=== PATIENT | male | born 1960 | race Caucasian/White ===

== ENCOUNTER → 2020-04-15 | Outpatient (CLI) | payer BC | END | disposition home or self-care (01) | LOC: CPPFTMAIN 08:54 | PROVIDERS: ATTEND Physician Assistant Medical | DX: J44.9 Chronic obstructive pulmonary disease, unspecified (principal); J98.8 Other specified respiratory disorders | CPT/HCPCS: 94060; 94726; 94729 ==

== ENCOUNTER 2020-10-07 21:10 | Emergency (ER) | payer BC ==
[2020-10-07] MEDS ORDERED: HYDROmorphone 0.5 MG/0.5 ML SYRINGE IVP STA (22:02)
[2020-10-07] MEDS ORDERED: KETOROLAC 15 MG/ML 1 ML VIAL IVP STA (22:02)
[2020-10-07] MEDS ORDERED: ONDANSETRON 4 MG/2 ML VIAL IVP STA (22:02)
[2020-10-07] MEDS ORDERED: SODIUM CHLORIDE 0.9% 1,000 ML IV STA (22:02)
--- NOTE | 2020-10-07 22:24 | ED ---
Back Pain HPI - General Chief Complaint: Back Pain/Injury Stated Complaint: Back Pain Time Seen by Provider: 10/07/20 21:46 Source: patient Limitations: no limitations - History of Present Illness Initial Comments: 59-year-old male patient presents to the emergency department today for evaluation of right lower back pain radiating through to the right lower abdomen. Patient states this started a couple days ago after waking from a nap. Patient denies history of back pain. Denies radiation of pain down his legs. Denies loss of bowel or bladder control. Denies saddle anesthesia or numbness or tingling to the lower extremities. States he has been nauseated. Denies any vomiting. Denies any fever or chills. Denies history of kidney stones or any difficulty with urination. Denies constipation or diarrhea. Patient denies any recent rash, cough, shortness of breath, chest pain, dizziness, weakness, headache, visual changes, or any other complaints. - Related Data Home Medications Medication Instructions Recorded Confirmed Fluticasone/Salmeterol [Advair 1 inhalation PO DAILY 11/26/14 11/28/14 250-50 Diskus] Levothyroxine Sodium [Synthroid] 75 mcg PO DAILY 11/26/14 11/28/14 Previous Rx's Medication Instructions Recorded HYDROcodone/APAP 7.5-325MG [Surveyor 1 each PO Q4H PRN #60 tab 11/28/14 7.5] Cyclobenzaprine [Flexeril] 10 mg PO TID #15 tab 10/08/20 Lidocaine 5% Patch [Lidoderm] 1 patch TOPICAL DAILY #30 patch 10/08/20 Naproxen [EC-Naprosyn] 500 mg PO BID PRN #30 tablet. 10/08/20 Allergies Allergy/AdvReac Type Severity Reaction Status Date / Time No Known Allergies Allergy Verified 10/07/20 21:25 Review of Systems ROS Statement: Those systems with pertinent positive or pertinent negative responses have been documented in the HPI. ROS Other: All systems not noted in ROS Statement are negative. Past Medical History Past Medical History: COPD, Thyroid Disorder History of Any Multi-Drug Resistant Organisms: None Reported Past Surgical History: Orthopedic Surgery Additional Past Surgical History / Comment(s): surgery fx rt wrist , surgery fx rt arm, rt shoulder arthroscopy Past Anesthesia/Blood Transfusion Reactions: No Reported Reaction Past Psychological History: Anxiety Smoking Status: Never smoker Past Alcohol Use History: None Reported Past Drug Use History: None Reported - Past Family History Father Family Medical History: Cancer Mother Family Medical History: Cancer General Exam Limitations: no limitations General appearance: alert, in no apparent distress, other (This is a well- developed, well-nourished adult male patient in no acute distress. Vital signs upon presentation are temperature 97.8F, pulse 73, respirations 18, blood pressure 169/101, pulse ox 97% on room air.) Respiratory exam: Present: normal lung sounds bilaterally. Absent: respiratory distress, wheezes, rales, rhonchi, stridor Cardiovascular Exam: Present: regular rate, normal rhythm, normal heart sounds. Absent: systolic murmur, diastolic murmur, rubs, gallop, clicks GI/Abdominal exam: Present: soft, tenderness (Right upper and right lower quadrant), normal bowel sounds. Absent: distended, guarding, rebound, rigid Back exam: Present: CVA tenderness (R). Absent: CVA tenderness (L) Neurological exam: Present: alert, oriented X3, CN II-XII intact Psychiatric exam: Present: normal affect, normal mood Skin exam: Present: warm, dry, intact, normal color. Absent: rash Course Vital Signs 10/07/20 10/08/20 21:22 00:10 Temperature 97.8 F Pulse Rate 73 68 Respiratory 18 17 Rate Blood Pressure 169/101 147/98 O2 Sat by Pulse 97 96 Oximetry Medical Decision Making - Medical Decision Making 59-year-old male patient presents to the emergency department today for evaluat ion of right lower back pain. Patient states the pain does radiate through to the abdomen. Denies radiation down the legs. Denies any concerning symptoms for cauda equina. He is afebrile, vital signs were labs are unremarkable. CT abdomen and pelvis without contrast was obtained and was negative for any acute abnormalities. There was epigastric hernia containing fat measuring 5 cm with no inflammatory changes. Patient denies pain to this area. Will discharge follow-up with his primary care physician for recheck in 1-2 days. We'll treat for musculoskeletal back pain with naproxen and Flexeril. He'll also be given Lidoderm patches. Return parameters were discussed in detail. He verbalizes understanding and agrees with this plan. - Lab Data Result diagrams: 10/07/20 22:18 10/07/20 22:18 Lab Results 10/07/20 10/07/20 10/07/20 Range/Units 22:18 22:18 22:18 WBC 9.3 (3.8-10.6) k/uL RBC 5.02 (4.30-5.90) m/uL Hgb 16.0 (13.0-17.5) gm/dL Hct 46.4 (39.0-53.0) % MCV 92.3 (80.0-100.0) fL MCH 31.9 (25.0-35.0) pg MCHC 34.5 (31.0-37.0) g/dL RDW 12.6 (11.5-15.5) % Plt Count 298 (150-450) k/uL MPV 6.8 Neutrophils % 66 % Lymphocytes % 23 % Monocytes % 6 % Eosinophils % 2 % Basophils % 1 % Neutrophils # 6.2 (1.3-7.7) k/uL Lymphocytes # 2.1 (1.0-4.8) k/uL Monocytes # 0.6 (0-1.0) k/uL Eosinophils # 0.2 (0-0.7) k/uL Basophils # 0.1 (0-0.2) k/uL Sodium 139 (137-145) mmol/L Potassium 4.1 (3.5-5.1) mmol/L Chloride 105 (98-107) mmol/L Carbon Dioxide 29 (22-30) mmol/L Anion Gap 5 mmol/L BUN 18 (9-20) mg/dL Creatinine 0.89 (0.66-1.25) mg/dL Est GFR (CKD-EPI)AfAm >90 (>60 ml/min/1.73 sqM) Est GFR (CKD-EPI)NonAf >90 (>60 ml/min/1.73 sqM) Glucose 116 H (74-99) mg/dL Calcium 9.2 (8.4-10.2) mg/dL Total Bilirubin 0.3 (0.2-1.3) mg/dL AST 33 (17-59) U/L ALT 31 (4-49) U/L Alkaline Phosphatase 87 (38-126) U/L Total Protein 7.5 (6.3-8.2) g/dL Albumin 4.2 (3.5-5.0) g/dL Lipase 238 (23-300) U/L Urine Color Yellow Urine Appearance Clear (Clear) Urine pH 5.5 (5.0-8.0) Ur Specific [place] 1.024 (1.001-1.035) Urine Protein Negative (Negative) Urine Glucose (UA) Negative (Negative) Urine Ketones Negative (Negative) Urine Blood Trace H (Negative) Urine Nitrite Negative (Negative) Urine Bilirubin Negative (Negative) Urine Urobilinogen <2.0 (<2.0) mg/dL Ur Leukocyte Esterase Negative (Negative) Urine RBC 1 (0-5) /hpf Urine WBC <1 (0-5) /hpf Urine Bacteria Rare H (None) /hpf Urine Mucus Rare H (None) /hpf - Radiology Data Radiology results: report reviewed, image reviewed CT head and pelvis without contrast was obtained. Report reviewed in its entirety. Impression by Dr. Farrar shows sigmoid diverticulosis without diverticulitis. Epigastric ventral hernia contains fat. No acute abnormality of the abdomen and pelvis. Disposition Clinical Impression: Back pain, Abdominal pain Disposition: HOME SELF-CARE Condition: Good Instructions (If sedation given, give patient instructions): Acute Low Back Pain (ED), Abdominal Pain (ED) Additional Instructions: Take medications as directed. Perform gentle range of motion exercises to the back. Avoid prolonged periods of sitting worse lying down. Follow-up with your primary care physician for recheck in 1-2 days. Return to the emergency department for any new, worsening, or concerning symptoms. Prescriptions: Naproxen [EC-Naprosyn] 500 mg PO BID PRN #30 tablet.dr RAMIREZ Reason: Pain Cyclobenzaprine [Flexeril] 10 mg PO TID #15 tab Lidocaine 5% Patch [Lidoderm] 1 patch TOPICAL DAILY #30 patch Is patient prescribed a controlled substance at d/c from ED?: No Referrals: Elle Munroe MD [Primary Care Provider] - 1-2 days Time of Disposition: 00:29
[2020-10-07 22:46] LABS: Basophils # (A) 0.1 k/uL (0-0.2); Basophils % (A) 1 %; Eosinophils # (A) 0.2 k/uL (0-0.7); Eosinophils % (A) 2 %; HCT 46.4 % (39.0-53.0); Lymphocytes # (A) 2.1 k/uL (1.0-4.8); Lymphocytes % (A) 23 %; MCH 31.9 pg (25.0-35.0); MCHC 34.5 g/dL (31.0-37.0); MCV 92.3 fL (80.0-100.0); Mean Platelet Volume 6.8; Monocytes # (A) 0.6 k/uL (0-1.0); Monocytes % (A) 6 %; Neutrophils # (A) 6.2 k/uL (1.3-7.7); Neutrophils % (A) 66 %; Platelet Count 298 k/uL (150-450); RBC 5.02 m/uL (4.30-5.90); RDW 12.6 % (11.5-15.5); WBC 9.3 k/uL (3.8-10.6)
[2020-10-07 22:50] LABS: Appearance,Urine Clear (Clear); Bacteria,Urine Rare /hpf; Bilirubin,Urine Negative (Negative); Blood,Urine Trace (Negative); Color,Urine Yellow; Glucose,Urine (UA) Negative (Negative); Ketones,Urine Negative (Negative); Leukocyte Esterase,Urine Negative (Negative); Mucus,Urine Rare /hpf; Nitrite,Urine Negative (Negative); PH, Urine 5.5 (5.0-8.0); Protein,Urine Negative (Negative); RBC,Urine 1 /hpf (0-5); Specific Gravity,Urine 1.024 (1.001-1.035); Urobilinogen,Urine <2.0 mg/dL (<2.0); WBC,Urine <1 /hpf (0-5)
[2020-10-07 22:56] LABS: African American GFR (CKD) >90 (>60 ml/min/1.73 sqM); Albumin 4.2 g/dL (3.5-5.0); Anion Gap 5 mmol/L; Blood Urea Nitrogen 18 mg/dL (9-20); Calcium 9.2 mg/dL (8.4-10.2); Carbon Dioxide 29 mmol/L (22-30); Chloride 105 mmol/L (98-107); Glucose 116 mg/dL (74-99); Non-African American GFR(CKD) >90 (>60 ml/min/1.73 sqM); Potassium 4.1 mmol/L (3.5-5.1); Sodium 139 mmol/L (137-145); Total Bilirubin 0.3 mg/dL (0.2-1.3); Total Protein 7.5 g/dL (6.3-8.2)
[2020-10-07 22:57] LABS: ALT 31 U/L (4-49); AST 33 U/L (17-59); Alkaline Phosphatase 87 U/L (38-126); Lipase 238 U/L (23-300)
--- NOTE | 2020-10-08 00:21 | CT ---
EXAMINATION TYPE: CT abdomen pelvis wo con DATE OF EXAM: 10/07/2020 COMPARISON: None HISTORY: right lower back pain CT DLP: 567.3 mGycm Automated exposure control for dose reduction was used. Images obtained from the diaphragm to the floor the pelvis without contrast. Lung bases are clear of consolidation. There is no pleural effusion. Heart size is normal. There is n o pericardial effusion. There is small cysts in the anterior right lobe of the liver. Spleen is intact. There is no pancreati c mass. Stomach is intact. There is no adrenal mass. Kidneys have normal size. There is no hydronephrosis. Ureters are not dilated. There is no retroperit sanchez adenopathy. Bladder distends smoothly. There is no inguinal hernia. There is some prostatic tayler cification. There are a few sigmoid diverticula. There is no diverticulitis. There is epigastric ventral hernia t hat contains fat. The opening is 2.5 cm. There are hernia measures 5.5 cm. Appendix appears normal. There is no mesenteric edema. There is no ascites or free air. There is no bowel obstruction. Lumbar vertebra have fairly normal alignment. There is no compression fracture. The bony pelvis is in tact. Hip joints are intact. IMPRESSION: There is sigmoid diverticulosis without diverticulitis. Epigastric ventral hernia contains fat. No acute abnormality of the abdomen pelvis.
[2020-10-08] MEDS ORDERED: IBUPROFEN 600 MG STARTER PACK 4 TAB BTL PO STA (00:30)
[2020-10-08] MEDS ORDERED: CYCLOBENZAPRINE 10MG STARTER 3 TAB BTL PO STA (00:30)
[2020-10-08] MEDS ORDERED: LIDOCAINE 5% PATCH TOPICAL STA (00:30)
[2020-10-08 01:32] VITALS: BP 149/98; PULSE 82; RESP 19; TEMP 98.2
== END 2020-10-08 01:26 | disposition home or self-care (01) ==
LOC: EC 21:10
DX: K43.9 Ventral hernia without obstruction or gangrene (principal); M54.5 Low back pain; J44.9 Chronic obstructive pulmonary disease, unspecified; E07.9 Disorder of thyroid, unspecified; Z79.51 Long term (current) use of inhaled steroids; Z79.890 Hormone replacement therapy
CPT/HCPCS: 36415; 80053; 83690; 85025; 81001; 74176; 99284; 96374; 96375 ×2; J2405; J1885; J1170

== ENCOUNTER → 2021-01-19 | Outpatient (CLI) | payer BC | END | disposition home or self-care (01) | LOC: LABWHC1 16:43 | PROVIDERS: ATTEND Family Medicine | DX: U07.1 COVID-19 (principal) | CPT/HCPCS: U0003; C9803; U0005 ==

== ENCOUNTER → 2021-02-03 | Outpatient (CLI) | payer BC ==
--- NOTE | 2021-02-03 18:30 | CT ---
EXAMINATION TYPE: CT angio chest DATE OF EXAM: 02/03/2021 COMPARISON: None HISTORY: Elevated d-dimer. CT DLP: mGycm Automated exposure control for dose reduction was used. CONTRAST: Performed , patient injected with mL of . The contrast was Isovue 55 mL. There are 3-D post processed images. There is some bullous pulmonary emphysema. There is 2 x 1 cm irregular infiltrate in the subpleural s uperior segment left lower lobe adjacent to the chest wall. There is 2 cm low-density infiltrate in t he anterior right upper lobe. There is also similar 1.5 cm infiltrate anterior right upper lobe near the sternum. There is noncalcified 5 mm nodule anterior right upper lobe. There is some patchy reticu lar subpleural infiltrates in the posterior lower lobes bilaterally. These measure up to 3 cm. There is no pleural effusion. Heart size is normal. There is no pericardial effusion. Thoracic aorta is intact. There is no aneurysm or dissection. The ascending aorta measures 3.9 cm. There is normal contrast opacification of the pulmonary arteries. There are no filling defects. There is no mediastinal adenopathy. There are no hilar masses. Bony thorax is intact. Upper abdominal soft tissues are intact. IMPRESSION: No evidence of pulmonary embolism. Bilateral peripheral mild pulmonary infiltrates consistent with mild pneumonia. No suspicious pulmona ry mass.
== END ==
LOC: LABWHC1 15:39
PROVIDERS: ATTEND Nurse Practitioner Family
DX: R79.89 Other specified abnormal findings of blood chemistry (principal); R91.8 Other nonspecific abnormal finding of lung field; R06.02 Shortness of breath; Z86.16 Personal history of COVID-19
CPT/HCPCS: 85379; 71275; 36415; Q9967

== ENCOUNTER → 2021-02-18 | Outpatient (CLI) | payer BC ==
--- NOTE | 2021-03-03 10:23 | ECHOF ---
Referral Reason:R42 lightheadedness MEASUREMENTS -------- HEIGHT: 165.1 cm WEIGHT: 78.9 kg BP: RVIDd: 3.3 cm (< 3.3) IVSd: 0.9 cm (0.6 - 1.1) LVIDd: 4.6 cm (3.9 - 5.3) LVPWd: 1.3 cm (0.6 - 1.1) IVSs: 1.2 cm LVIDs: 3.6 cm LVPWs: 1.0 cm LA Diam: 3.7 cm (2.7 - 3.8) LAESV Index (A-L): 23.70 ml/m Ao Diam: 3.0 cm (2.0 - 3.7) AV Cusp: 2.0 cm (1.5 - 2.6) MV EXCURSION: 21.866 mm (> 18.000) MV EF SLOPE: 104 mm/s (70 - 150) EPSS: 0.2 cm MV E Skip: 0.83 m/s MV DecT: 259 ms MV A Skip: 0.94 m/s MV E/A Ratio: 0.88 RAP: 5.00 mmHg RVSP: 13.09 mmHg FINDINGS -------- Sinus rhythm. This was a technically good study. LV size, wall thickness and systolic function are normal, with an EF greater than 55%. The left jose juan tricular size is normal. The right ventricle is normal in size. Normal LA size by volume 22+/-6 ml/m2. The right atrial size is normal. The aortic valve is trileaflet, and appears structurally normal. No aortic stenosis or regurgitation. Mild mitral regurgitation is present. Mild tricuspid regurgitation present. Right ventricular systolic pressure is normal at < 35 mmHg. There is no pulmonic regurgitation present. The aortic root size is normal. Echo free space represents a pericardial fat pad. CONCLUSIONS -------- 1. LV size, wall thickness and systolic function are normal, with an EF greater than 55%. 2. The left ventricular size is normal. 3. The right ventricle is normal in size. 4. Normal LA size by volume 22+/-6 ml/m2. 5. The right atrial size is normal. 6. The aortic valve is trileaflet, and appears structurally normal. No aortic stenosis or regurgitati on. 7. Mild mitral regurgitation is present. 8. Mild tricuspid regurgitation present. 9. The aortic root size is normal. 10. Echo free space represents a pericardial fat pad. SHELL GRADER: Gina Zavaleta RDCS
== END | disposition home or self-care (01) ==
LOC: RADECHMAIN 13:03
PROVIDERS: ATTEND Family Medicine
DX: I08.1 Rheumatic disorders of both mitral and tricuspid valves (principal)
CPT/HCPCS: 93306

== ENCOUNTER → 2021-09-30 | Outpatient (CLI) | payer BC | END | disposition home or self-care (01) | LOC: LABWHC1 11:37 | PROVIDERS: ATTEND Family Medicine | DX: R50.9 Fever, unspecified (principal) | CPT/HCPCS: U0003; C9803 ==

== ENCOUNTER 2021-12-17 01:39 | Emergency (ER) | payer BC, OTHER ==
[2021-12-17 01:47] VITALS: TEMP 98.2
[2021-12-17] MEDS ORDERED: IBUPROFEN 400 MG TAB PO STA (02:52)
--- NOTE | 2021-12-17 03:12 | XR ---
EXAMINATION TYPE: XR shoulder complete RT DATE OF EXAM: 12/17/2021 COMPARISON: 05/21/2013 HISTORY: Shoulder pain TECHNIQUE: 3 views FINDINGS: There is some mild widening of the AC joint space consistent with ligamentous tear. There i s minor spurring at the greater tuberosity of the humerus. I see no fracture nor dislocation. IMPRESSION: Mild widening of the AC joint space appears new compared to old exam. No fracture.
--- NOTE | 2021-12-17 04:23 | ED ---
Upper Extremity HPI - General Chief Complaint: Extremity Injury, Upper Stated Complaint: IHS, shoulder pain Time Seen by Provider: 12/17/21 01:52 Source: patient Mode of arrival: ambulatory Limitations: no limitations - History of Present Illness Initial Comments: This patient is 61-year-old man who presents to have evaluation of right shoulder injury. When I initially spoke with the patient, he stated that he had been lifting heavy object and then noted right shoulder pain. He stated that almost felt like his arm had given out. There did not appear to be a traumatic impact to the shoulder. At another point he did tell staff member but not to me that he had fallen and there had been an impact to the right shoulder. He was indicating the anterior aspect during the history and physical. No weakness or numbness of the arm. No neck symptoms. MD Complaint: Injury to:: right, shoulder -: hour(s) Other Extremity Injury: Shoulder: Right Handedness: right Place: work Improves With: none Worsens With: movement of extremity Context: other Associated Symptoms: denies other symptoms - Related Data Home Medications Medication Instructions Recorded Confirmed Fluticasone/Salmeterol [Advair 1 inhalation PO DAILY 11/26/14 11/28/14 250-50 Diskus] Levothyroxine Sodium [Synthroid] 75 mcg PO DAILY 11/26/14 11/28/14 Previous Rx's Medication Instructions Recorded HYDROcodone/APAP 7.5-325MG [Mccormick 1 each PO Q4H PRN #60 tab 11/28/14 7.5] Cyclobenzaprine [Flexeril] 10 mg PO TID #15 tab 10/08/20 Lidocaine 5% Patch [Lidoderm] 1 patch TOPICAL DAILY #30 patch 10/08/20 Naproxen [EC-Naprosyn] 500 mg PO BID PRN #30 tablet. 10/08/20 Ibuprofen [Motrin] 600 mg PO Q8HR PRN #20 tab 12/17/21 Allergies Allergy/AdvReac Type Severity Reaction Status Date / Time No Known Allergies Allergy Verified 12/17/21 01:46 Review of Systems ROS Statement: Those systems with pertinent positive or pertinent negative responses have been documented in the HPI. ROS Other: All systems not noted in ROS Statement are negative. Constitutional: Denies: fever, weakness Musculoskeletal: Reports: as per HPI, arthralgia. Denies: back pain, joint swelling Skin: Denies: lesions Neurological: Denies: weakness, numbness, paresthesias Past Medical History Past Medical History: COPD, Thyroid Disorder History of Any Multi-Drug Resistant Organisms: None Reported Past Surgical History: Orthopedic Surgery Additional Past Surgical History / Comment(s): surgery fx rt wrist , surgery fx rt arm, rt shoulder arthroscopy Past Anesthesia/Blood Transfusion Reactions: No Reported Reaction Past Psychological History: Anxiety Smoking Status: Former smoker Past Alcohol Use History: None Reported Past Drug Use History: None Reported - Past Family History Father Family Medical History: Cancer Mother Family Medical History: Cancer General Exam Limitations: no limitations General appearance: alert, in no apparent distress Head exam: Present: atraumatic, normocephalic Neck exam: Present: normal inspection, full ROM. Absent: tenderness, meningismus Respiratory exam: Absent: chest wall tenderness Right Shoulder Exam: Present: normal inspection, tenderness (To the anterior aspect of right shoulder near before meals joint.), tenderness over AC joint. Absent: swelling, abrasion, laceration, ecchymosis, deformity, crepitus, dislocation, erythema Upper Arm exam: Present: normal inspection, full ROM. Absent: tenderness, swelling Elbow exam: Present: normal inspection, full ROM. Absent: tenderness, swelling Forearm Wrist exam: Present: normal inspection, full ROM. Absent: tenderness, swelling Hand Wrist exam: Present: normal inspection, full ROM. Absent: tenderness, swelling Neuro motor exam: Present: wrist extension intact, thumb opposition intact, thumb IP flexion intact, thumb adduction intact, fingers 2-5 abduction intact Vascular: Present: normal capillary refill. Absent: vascular compromise, pulse deficit radial art, pulse deficit ulnar art Course Vital Signs 12/17/21 12/17/21 01:41 05:13 Temperature 98.2 F 98.2 F Pulse Rate 81 72 Respiratory 22 16 Rate Blood Pressure 162/95 137/97 O2 Sat by Pulse 98 98 Oximetry Medical Decision Making - Medical Decision Making The patient's shoulder x-ray showed possible widening at the before meals joint. On requestioning, the patient did state that there had been a slip and fall at some point. Given the appearance of x-ray will have patient follow with occupational medicine for further evaluation and treatment. Disposition Clinical Impression: Shoulder injury, Acromioclavicular joint separation Disposition: HOME SELF-CARE Condition: Good Instructions (If sedation given, give patient instructions): Acromioclavicular Separation (ED), Rotator Cuff Injury (ED) Prescriptions: Ibuprofen [Motrin] 600 mg PO Q8HR PRN #20 tab PRN Reason: Pain Is patient prescribed a controlled substance at d/c from ED?: No Referrals: Jean Ball MD [Primary Care Provider] - 1-2 days
[2021-12-17 05:15] VITALS: BP 137/97; PULSE 72; RESP 16
== END 2021-12-17 05:10 | disposition home or self-care (01) ==
LOC: EC 01:39
DX: S43.101A Unspecified dislocation of right acromioclavicular joint, initial encounter (principal); E07.9 Disorder of thyroid, unspecified; J44.9 Chronic obstructive pulmonary disease, unspecified; Z87.891 Personal history of nicotine dependence; Z79.890 Hormone replacement therapy; W01.0XXA Fall on same level from slipping, tripping and stumbling without subsequent striking against object, initial encounter
CPT/HCPCS: 99284

== ENCOUNTER 2022-06-09 09:01 | Day surgery (SDC) | payer BC, OTHER ==
[2022-06-08 14:12] VITALS: BMI 32.4
--- NOTE | 2022-06-09 01:27 | HP ---
HISTORY AND PHYSICAL DATE OF SURGERY: 06/09/2022. HISTORY OF PRESENT ILLNESS: Mr. Greene is a 61-year-old gentleman seen with progressive right shoulder pain. We discussed options for treatment. He elected to proceed with right shoulder arthroscopy. Consent is obtained. PAST MEDICAL HISTORY: Hypertension, hypothyroidism, asthma. PAST SURGICAL HISTORY: Shoulder arthroscopy, wrist surgery. DAILY MEDICATIONS: 1. Advair inhaler. 2. Levothyroxine. 3. Lisinopril. 4. Motrin. ALLERGIES: Vicodin, penicillin. SOCIAL HISTORY: Denies tobacco use. PHYSICAL EVALUATION OF THE RIGHT SHOULDER: Flexion is 90 degrees, abduction is 80 degrees, external rotation is 30 degrees with significant pain and weakness. Tenderness along the anterior lateral acromion and rotator cuff insertion. Impingement is positive at 90 degrees. Drop-arm sign is positive. Distal neurovascular exam is intact. RADIOGRAPHS: Right shoulder revealed no osseous abnormality. MRI of right shoulder revealed rotator cuff tear. IMPRESSION: 1. Right shoulder impingement with rotator cuff tear. 2. Hypertension. 3. Asthma. 4. Hypothyroidism. PLAN: Right shoulder arthroscopy, decompression, arthroscopic rotator cuff repair and debridement. MMODL / IJN: [id number] /
[~2022-06-09 09:01] MED LIST: DEXAMETHASONE SOD PHOSPHATE 4 MG/ML 1 ML VIAL IV ONE; HYDROmorphone 0.5 MG/0.5 ML SYRINGE IVP PRN; LACTATED RINGERS 1,000 ML IV SCH; LIDOCAINE 1% (10MG/ML) FOR IV START INTRADERMA PRN; ONDANSETRON 4 MG/2 ML VIAL IVP PRN
[2022-06-09] MEDS ORDERED: PROPOFOL 10 MG/ML 20 ML VIAL IV ONE (10:45)
[2022-06-09] MEDS ORDERED: LIDOCAINE 2% INJ 20 MG/ML (2 ML VIAL) ONE (10:45)
[2022-06-09] MEDS ORDERED: HYDROmorphone (PF) 1 MG/ML ONE (10:45)
[2022-06-09] MEDS ORDERED: KETOROLAC 15 MG/ML 1 ML VIAL ONE (10:45)
[2022-06-09] MEDS ORDERED: SUCCINYLCHOLINE CHLORIDE 200 MG/10 ML VIAL IV ONE (10:45)
[2022-06-09] MEDS ORDERED: fentaNYL (PF) 50 MCG/ML 2 ML AMP ONE (10:45)
[2022-06-09] MEDS ORDERED: MIDAZOLAM 2 MG/2 ML VIAL ONE (10:45)
[2022-06-09] MEDS ORDERED: BUPIVACAINE (PF) 0.5% 30 ML VIAL SQ ONE ×2 (11:17→12:31)
[2022-06-09] MEDS ORDERED: LACTATED RINGERS 1,000 ML IV ONE (12:10)
--- NOTE | 2022-06-09 12:46 | P.OP ---
Date of Procedure: 06/09/22 Preoperative Diagnosis: Right shoulder impingement Postoperative Diagnosis: 1. Right shoulder rotator cuff tear 2. Right shoulder impingement Procedure(s) Performed: 1. Right shoulder arthroscopic rotator cuff repair 2. Right shoulder arthroscopic subacromial decompression Implants: 34.75 Arthrex swivel lock anchors 15.5 Arthrex swivel lock anchor Anesthesia: bubba MACIAS Surgeon: Pablo Laboy Assistant Professor Of Spanish #1: Mike Graf Estimated Blood Loss (ml): 11 Pathology: none sent Condition: stable Disposition: PACU Indications for Procedure: 61-year-old woman seen with progressive right shoulder pain. After having treatment options discussed, he elected to proceed with arthroscopy. Operative Findings: See description of procedure Description of Procedure: The patient was then taken to the operative suite. The patient underwent a general anesthetic by the department of anesthesia. The patient was placed into a lateral position and secured. There was appropriate padding of the bony prominence. Right shoulder was then prepped and draped in normal sterile orthopedic fashion. We placed the extremity in 10 pounds of longitudinal traction. A posterior incision was now made for a posterior working portal site. The trocar and cannula were inserted into the glenohumeral joint. Arthroscopy was initiated. Spinal needle was now inserted anteriorly, to ascertain the anterior working portal site. An incision was now made in that area, a trocar was inserted followed by a probe. The biceps tendon was absent. There were grade 2 chondromalacia changes of the glenohumeral joint. The labrum was stable. Instruments were now removed from the glenohumeral joint. Utilizing the posterior working portal site, the trocar and cannula were inserted into the subacromial space. Arthroscopy initiated. I made an incision 2 fingerbreadths lateral to the acromion. I introduced my trocar followed by my ArthroCare ablator. I now began ablating thick subacromial bursal tissue, which exposed the undersurface of the anterior acromion. There was a residual spur along the anterior medial acromion. I introduced a bur and performed a decompression. I noted good decompression of subacromial space. The acromioclavicular joint was visualized and noted to be stable with evidence for previous Thea procedure. I turned my attention to the rotator cuff tendon. There was a tear along the distal supraspinatus area with evidence of previous repair more anteriorly. Those residual sutures were removed. I debrided the margins getting down to stable tendon tissue. The tear measured approximately 2.53 centimeters but was freely mobile over the footprint. I abraded the footprint with a motorized bur. I made an assessory portal site off the lateral acromion. I punched 2 holes for medial anchors. With the assistance of Lenin SANDS now inserted 2-4.75 Arthrex swivel lock medial anchors with 2 sutures each and I noted good fixation. With the assistance of Lenin SANDS now passed each suture limb through good bites of rotator cuff tendon working our way from the anterior aspect the posterior aspect. I now punched holes laterally for lateral anchors. We now crisscrossed the sutures. 4 limbs of suture were passed through the eyelet of a 5.5 anchor and it was introduced anteriorly to the pre-punch hole. I held it in position while Lenin SANDS tension the sutures and deployed anchor with good fixation noted. Residual suture limbs were clipped. We now took the remaining for suture limbs and passed those through the eyelet of a 4.75 Arthrex swivel lock anchor. I placed the eyelet into the pre-punch hole. I held in position while Lenin SANDS tension all 4 suture limbs and deployed anchor with good fixation noted. All residual suture limbs were now clipped. We had good compression of the tendon along the entire footprint. Instruments now removed from the portal sites. All portal sites were approximated with nylon suture. Sterile dressings were applied followed by a shoulder immobilizer. Mike SANDS assisted in this complex case. The patient was awakened, transferred to a bed, and taken to recovery in stable condition.
[2022-06-09 13:00] VITALS: TEMP 96.8
[2022-06-09] MEDS: MEPERIDINE 50 MG/ML SYRINGE IVP ONE ×2 (13:06→13:20)
[2022-06-09] MEDS ORDERED: diphenhydrAMINE 50 MG/ML 1 ML VIAL ONE (13:17)
[2022-06-09] MEDS ORDERED: diphenhydrAMINE 50 MG/ML 1 ML VIAL IVP ONE (13:18)
[2022-06-09] MEDS ORDERED: HYDROcodone/APAP 7.5-325MG 1 EACH TAB ONE (14:41)
[2022-06-09] MEDS ORDERED: HYDROcodone/APAP 7.5-325MG 1 EACH TAB PO ONE (14:44)
[2022-06-09 15:03] VITALS: BP 131/80; PULSE 96; RESP 16
== END 2022-06-09 15:28 | disposition home or self-care (01) ==
LOC: OR 09:01
PROVIDERS: ATTEND Orthopaedic Surgery
DX: M75.41 Impingement syndrome of right shoulder (principal); M75.101 Unspecified rotator cuff tear or rupture of right shoulder, not specified as traumatic; M94.211 Chondromalacia, right shoulder; I10 Essential (primary) hypertension; E78.5 Hyperlipidemia, unspecified; J44.9 Chronic obstructive pulmonary disease, unspecified; E03.9 Hypothyroidism, unspecified; Z88.5 Allergy status to narcotic agent; Z88.0 Allergy status to penicillin; Z87.891 Personal history of nicotine dependence; Z80.9 Family history of malignant neoplasm, unspecified
CPT/HCPCS: 29827; 29826; C1713 ×4; J2250; J0330; J1200; J1100; J2175; J0690; J2405; J3010; J1170; J1885; J2704; J2001

== ENCOUNTER → 2022-09-14 | Outpatient (CLI) | payer BC ==
--- NOTE | 2022-09-14 12:14 | XR ---
EXAMINATION TYPE: XR chest 2V DATE OF EXAM: 09/14/2022 COMPARISON: CTA chest February 03, 2021 HISTORY: COPD and cough. TECHNIQUE: Frontal and lateral views of the chest are obtained. FINDINGS: Mild underlying emphysematous changes are redemonstrated. There is no suspicious focal air space opacity, pleural effusion, or pneumothorax seen currently. The cardiac silhouette size is stab le and within normal limits. The osseous structures are intact. IMPRESSION: No suspicious acute pulmonary process currently.
== END | disposition home or self-care (01) ==
LOC: RADXRMAIN 11:58
PROVIDERS: ATTEND Nurse Practitioner Family
DX: J44.9 Chronic obstructive pulmonary disease, unspecified (principal)
CPT/HCPCS: 71046

== ENCOUNTER → 2022-10-05 | Outpatient (CLI) | payer OTHER ==
--- NOTE | 2022-10-05 12:26 | XR ---
EXAMINATION TYPE: XR shoulder complete RT DATE OF EXAM: 10/05/2022 12:11 PM INDICATION: Patient age:Male; 61 years old; Reason for study: Shoulder Injury M25.511; COMPARISON: 12/17/2021 TECHNIQUE: The right shoulder was examined in AP, internally rotated and scapular Y projections. . FINDINGS: No evidence of acute osseous pathology, joint dislocation, or soft tissue swelling. Degeneration porter ges of the right acromioclavicular joint with hypertrophy of the distal clavicle.The remaining portio ns of the visualized chest are unremarkable. IMPRESSION: 1. No acute osseous pathology. 2. Mild AC joint osteoarthrosis, not significantly changed from 12/17/2021.
== END | disposition home or self-care (01) ==
LOC: RADXRMAIN 11:58
PROVIDERS: ATTEND Orthopaedic Surgery
DX: M19.011 Primary osteoarthritis, right shoulder (principal)

== ENCOUNTER 2023-08-02 05:19 | Inpatient (IN) | payer BC ==
[2023-08-02] MEDS ORDERED: NALOXONE 0.4 MG/ML 1 ML VIAL IV PRN (05:31)
[2023-08-02] MEDS ORDERED: MORPHINE SULFATE 2 MG/ML SYRINGE IVP STA (05:31)
--- NOTE | 2023-08-02 05:31 | ED ---
General Adult HPI - General Stated complaint: Stemi - History of Present Illness Initial comments: Dictation was produced using [employer] dictation software. please excuse any grammatical, word or spelling errors. Chief Complaint: 62-year-old male transferred from outside hospital for ST segment elevation AL History of Present Illness: Is 62-year-old male presents to the emergency department as a STEMI. Cardiology was notified from [facility] ER staff th at patient had EKG consistent with ST segment elevation AL. Patient reports having had some chest pain for the last couple days worse overnight. Was seen at [facility] for ST segment elevation AL was seen on EKG. He was given an initial bolus with heparin. I was asked by Dr. Gomez of cardiology to monitor the patient until cath team arrived. The ROS documented in this emergency department record has been reviewed and confirmed by me. Those systems with pertinent positive or negative responses have been documented in the HPI. All other systems are other negative and/or noncontributory. - Related Data Home Medications Medication Instructions Recorded Confirmed Fluticasone Propion/Salmeterol 1 inhalation PO BID 11/26/14 06/09/22 [Advair 250-50 Diskus] Aspirin [Adult Low Dose Aspirin EC] 81 mg PO DAILY 06/08/22 06/09/22 Atorvastatin [Lipitor] 10 mg PO DAILY 06/08/22 06/09/22 Donepezil [Aricept] 10 mg PO HS 06/08/22 06/09/22 Fluticasone Nasal [place] [Flonase 1 spray EA NOSTRIL BID 06/08/22 06/09/22 Nasal [place]] Levothyroxine Sodium [Synthroid] 88 mcg PO DAILY 06/08/22 06/09/22 Montelukast Sodium [Singulair] 10 mg PO DAILY 06/08/22 06/09/22 PARoxetine [Paxil] 20 mg PO DAILY 06/08/22 06/09/22 amLODIPine [Norvasc] 5 mg PO DAILY 06/08/22 06/09/22 lisinopriL [Zestril] 10 mg PO DAILY 06/08/22 06/09/22 Previous Rx's Medication Instructions Recorded Ibuprofen [Motrin] 600 mg PO Q8HR PRN #20 tab 12/17/21 HYDROcodone/APAP 7.5-325MG [[place] 1 each PO Q6HR PRN #21 tab 06/09/22 7.5] diphenhydrAMINE [Benadryl] 25 mg PO BID PRN #30 capsule 06/09/22 Allergies Allergy/AdvReac Type Severity Reaction Status Date / Time hydrocodone [From [place]] Allergy Itching Verified 06/09/22 09:17 Review of Systems ROS Statement: Those systems with pertinent positive or pertinent negative responses have been documented in the HPI. ROS Other: All systems not noted in ROS Statement are negative. Past Medical History Past Medical History: COPD, Thyroid Disorder History of Any Multi-Drug Resistant Organisms: None Reported Past Surgical History: Orthopedic Surgery Additional Past Surgical History / Comment(s): surgery fx rt wrist , surgery fx rt arm, rt shoulder arthroscopy Past Anesthesia/Blood Transfusion Reactions: No Reported Reaction Smoking Status: Former smoker - Past Family History Father Family Medical History: Cancer Mother Family Medical History: Cancer General Exam - General Exam Comments Initial Comments: PHYSICAL EXAM: General Impression: Alert and oriented x3, not in acute distress HEENT: Normocephalic atraumatic, extra-ocular movements intact, pupils equal and reactive to light bilaterally, mucous membranes moist. Cardiovascular: Heart regular rate and rhythm Chest: Able to complete full sentences, no retractions, no tachypnea Abdomen: abdomen soft, non-tender, non-distended, no organomegaly Musculoskeletal: Pulses present and equal in all extremities, no peripheral edema Motor: no focal deficits noted Neurological: CN II-XII grossly intact, no focal motor or sensory deficits noted Skin: Intact with no visualized rashes Psych: Normal affect and mood Course - Reevaluation(s) Reevaluation #1: 08/02/23 05:28 Patient evaluated and placed in trauma bay #2. He is well-appearing. He is placed on monitor with defibrillation pads anticipation should he go into V. fib arrest. Patient well-appearing. Patient will be held in the ER until Team arrives. Cardiology at the bedside at 8:27 AM. Medical Decision Making - Medical Decision Making Was pt. sent in by a medical professional or institution (, PA, HEALTH PHYSICIST, urgent care, hospital, or penitentiary...) When possible be specific @ -No Did you speak to anyone other than the patient for history (EMS, parent, family, police, friend...)? What history was obtained from this source @ -Dr. Gomez and Dr. Watt Did you review nursing and triage notes (agree or disagree)? Why? @ -I reviewed and agree with nursing and triage notes Were old charts reviewed (outside hosp., previous admission, EMS record, old EKG, old radiological studies, urgent care reports/EKG's, penitentiary records)? Report findings @ -No old charts were reviewed Differential Diagnosis (chest pain, altered mental status, abdominal pain women, abdominal pain men, vaginal bleeding, musculoskeletal, weakness, fever, dyspnea, syncope, headache, dizziness, GI bleed, back pain, seizure, CVA, palpatations, mental health)? @ -Differential Chest Pain: Stable Angina, Unstable Angina, STEMI, NSTEMI Aortic Dissection, Pneumothorax, Musculoskeletal, Esophageal Spasm GERD, Cholecystitis, Pancreatitis, Zoster, this is not meant to be an all-inclusive list. EKG interpreted by me (3pts min.). @ -None done X-rays interpreted by me (1pt min.). @ -None done CT interpreted by me (1pt min.). @ -None done U/S interpreted by me (1pt. min.). @ -None done What testing was considered but not performed or refused? (CT, X-rays, U/S, labs)? Why? @ -None What meds were considered but not given or refused? Why? @ -None Did you discuss the management of the patient with other professionals (professionals i.e. , PA, HEALTH PHYSICIST, lab, RT, psych nurse, clinical social worker, health and physical education teacher, teacher, child support case officer, case reviewer)? Give summary @ -Case discussed with Dr. Ball for admission Was smoking cessation discussed for >3mins.? @ -No Was critical care preformed (if so, how long)? @ -Yes, 33 minutes Were there social determinants of health that impacted care today? How? (Homelessness, low income, unemployed, alcoholism, drug addiction, transportation, low edu. Level, literacy, decrease access to med. care, intermediate, rehab)? @ -No Was there de-escalation of care discussed even if they declined (Discuss DNR or withdrawal of care, Hospice)? DNR status @ -No What co-morbidities impacted this encounter? (DM, HTN, Smoking, COPD, CAD, Cancer, CVA, ARF, Chemo, Hep., AIDS, mental health diagnosis, sleep apnea, morbid obesity)? @ -None Was patient admitted / discharged? Hospital course, mention meds given and route, prescriptions, significant lab abnormalities, going to OR and other pertinent info. @ -62-year-old male transferred from outside ER for ST segment elevation AL. Patient monitored in the emergency department prior to cath team arriving. Patient monitored for several minutes with no complications. Patient disposition straight to laboratory monitor. Undiagnosed new problem with uncertain prognosis? @ -No Drug Therapy requiring intensive monitoring for toxicity (Heparin, Nitro, Insulin, Cardizem)? @ -No Were any procedures done? @ -No Diagnosis/symptom? Acute, or Chronic, or Acute on Chronic? Uncomplicated (without systemic symptoms) or Complicated (systemic symptoms)? @ -STEMI Side effects of treatment? @ -No Exacerbation, Progression, or Severe Exacerbation? @ -No Poses a threat to life or bodily function? How? (Chest pain, [place], AL, pneumonia, PE, COPD, DKA, ARF, appy, cholecystitis, CVA, Diverticulitis, Homicidal, Suicidal, threat to staff... and all critical care pts) @ -yes Disposition Clinical Impression: STEMI (ST elevation myocardial infarction) Disposition: ADMITTED IP TO THIS HOSP Condition: Critical Referrals: Jean Ball MD [Primary Care Provider] - 1-2 days Decision Time: 05:30
[2023-08-02] MEDS ORDERED: SODIUM CHLORIDE 0.9% 1,000 ML IV SCH (05:45)
[2023-08-02] MEDS ORDERED: LIDOCAINE 1% INJ 10MG/ML (20 ML MDV) SQ ONE (05:48)
[2023-08-02] MEDS ORDERED: HEPARIN SODIUM 1,000 UN/ML (10ML VL) ONE (05:52)
[2023-08-02] MEDS ORDERED: HEPARIN SODIUM 1,000 UN/ML (10ML VL) IV ONE (05:53)
[2023-08-02] MEDS ORDERED: PRASUGREL 10 MG TAB ONE (05:56)
[2023-08-02] MEDS ORDERED: PRASUGREL 10 MG TAB PO ONE (05:56)
[2023-08-02] MEDS ORDERED: MIDAZOLAM 2 MG/2 ML VIAL IVP ONE (05:58)
[2023-08-02] MEDS ORDERED: ONDANSETRON 4 MG/2 ML VIAL ONE (05:59)
[2023-08-02] MEDS ORDERED: ONDANSETRON 4 MG/2 ML VIAL IVP ONE (06:00)
[2023-08-02] MEDS ORDERED: NITROGLYCERIN 1000MCG/10ML SYRINGE INTRACORON ONE (06:05)
[2023-08-02] MEDS ORDERED: PHENYLEPHRINE-0.9% NACL SYG 1,000 MCG/10 ML SYRINGE IVP ONE (06:08)
[2023-08-02] MEDS ORDERED: DOPamine DRIP 800 MG in DEXTROSE/WATER 1 250ML.BAG IV ONE (06:08)
[2023-08-02] MEDS ORDERED: IV FLUID CONTINUATION 1,000 ML IV ONE (06:23)
[2023-08-02] MEDS ORDERED: RX INFO: IV CONTRAST WAS GIVEN 1 EACH MISC MISCELLANE PRN (06:23)
[2023-08-02] MEDS ORDERED: NITROGLYCERIN SL TABS 0.4 MG TAB SUBLINGUAL PRN (06:23)
[2023-08-02] MEDS ORDERED: MAG HYDROX/AL HYDROX/SIMETH 30 ML CUP PO PRN (06:23)
[2023-08-02] MEDS ORDERED: ATROPINE SULFATE 0.1 MG/ML 10ML SYRINGE IV PRN (06:23)
[2023-08-02] MEDS ORDERED: ZOLPIDEM 5 MG TAB PO PRN (06:23)
[2023-08-02] MEDS ORDERED: IOPAMIDOL-370 100ML BTL INJ ONE (06:23)
--- NOTE | 2023-08-02 06:29 | P.PCN ---
Date of Procedure: 08/02/23 Operative Findings: CARDIAC CATHETERIZATION AND PERCUTANEOUS CORONARY INTERVENTION PERFORMING PHYSICIAN: Rayo Gomez MD, [facility] PROCEDURE PERFORMED: 1. Selective right and left coronary angiogram 2. Left heart catheterization 3. Successful stenting of mid RCA using 3.5 x 18 mm Xience SELWYN with an excellent angiographic results 4. Adjunctive use of intravascular imaging INDICATION: Acute inferior ST elevation myocardial infarction COMPLICATION: None APPROACH: Right radial artery LEVEL OF SEDATION: Moderate with the sedation time off 33 minutes PROCEDURE DESCRIPTION: After obtaining an informed consent the patient was brought to the cardiac seed analysis laboratory assistant. The right radial artery was cannulated using micropuncture technique, the micropuncture wire passed easily then I placed a 6-Khmer sheath. Again the patient milligrams of verapamil intra-arterial. Heparin 4000 units given intravenous. Subsequently selective right coronary angiogram was performed using JR 3.5 guiding catheter and then I intervened on the right coronary greyson ry. Selective left coronary angiogram was performed using JL 3.5 diagnostic catheter. After that I did left heart catheterization using 6-Khmer pigtail catheter. The procedure was completed there was no complication SELECTIVE CORONARY ANGIOGRAM: The right coronary artery: Large caliber vessel and a dominant vessel. The mid RCA has critical lesion appeared to be in the range of 99.9% with haziness likely related to thrombus Left main: Is angiographically normal. Bifurcates into an LCx and LAD The left circumflex: Large caliber vessel none dominant vessel. The LCx is angiographically normal. Gives rise into the first OM branch which works as a ramus intermedius and appeared to be angiographically normal. OM 2 is a medium caliber vessel seems t o be normal and OM 3 also appears to be angiographically normal The left anterior descending artery: Large caliber vessel. The LAD appeared to be angiographically normal. It gives rises into the first and second and third diagonal branches all appear to be angiographically normal HEMODYNAMICS: And the LVEDP was 18 mmHg was no significant gradient across aortic valve PCI OF THE RCA: Anticoagulation was initiated using heparin with continuous ACT monitoring. Engaging the RCA was performed using JR 3.5 guide. I did wire the RCA using a run-through wire. Balloon angioplasty was performed using 3.0 x 12 mm balloon. After that intravascular ultrasound was performed and showed that the lesion appeared to be soft and nontender very calcified with a diameter of the RCA around 3.5-3.75 mm. I did deploy a 3.5 x 18 mm stent where the stent was positioned under fluoroscopy guidance and deployed under 14 ignacio for 20 seconds. Intravascular ultrasound again was performed and showed that the stent was not well expanded in the midportion. I postdilated the stent using 3.75 mm noncompliant balloon which was inflated under 16 ignacio for 20 seconds. Final angiogram was performed and showed excellent angiographic results and the procedure was completed was no complication CONCLUSION: #[address] elevation myocardial infarction #2 Subtotally occluded mid RCA. I did perform successful stenting of the mid RCA #3 Normal left coronary system #4 Mildly elevated left-sided filling pressure POSTPROCEDURE MANAGEMENT: 1. Dual antiplatelet therapy using aspirin and Effient for 12 month 2. Aggressive cholesterol control 3. Follow-up with the patient
[2023-08-02] MEDS ORDERED: SODIUM CHLORIDE 0.9% 1,000 ML in EMPTY BAG 1 BAG IV SCH (06:30)
--- NOTE | 2023-08-02 06:33 | P.CRDCN ---
History of Present Illness Consult date: 08/02/23 Chief complaint: Chest pain History of present illness: The patient is a pleasant 62-year-old gentleman with a past medical history significant for hypertension and dyslipidemia presented to the emergency department initially at [facility] with a chest discomfort. The patient was in his usual state of health until last night when he started experiencing discomfort across the chest as a pressure on the chest. No radiation to the arms but the pain was radiating to his back.His symptoms of any dizziness or lightheadedness or presyncope or syncope. He was experiencing shortness of breath and he did have sweating associated with a chest discomfort. He decided to come to the emergency department where the EKG over there showed ST segment elevation inferiorly with reciprocal changes in the anterior leads. Subsequently the patient was transferred to emergency department here [facility] where he then underwent an emergent heart catheterization and was found to have critical disease involving the mid RCA which was stented was normal left coronary system and mildly elevated left-sided filling pressure. The procedure was performed from right radial approach and the patient tolerated the procedure very well. By the end he was slightly hypotensive requiring small doses of dopamine. The patient will be admitted to the intensive care unit. He will be on dual antiplatelet therapy along with high intensity statin along with anti- ischemic medications. An echocardiogram to be performed. The patient did not have any history of CAD or heart failure or cardiac arrhythmia never seen any turbo operator in the past. He does have hypertension and dyslipidemia and he used to smoke but he quit smoking long time ago. The examination is remarkable for regular rhythm with a distant heart sounds and soft systolic murmur at the right and left upper sternal border. Assessment Acute inferior ST elevation myocardial infarction Status post PCI of the RCA Hypertension Dyslipidemia History of smoking Plan Continue the current medical regimen Continue dual antiplatelet therapy along with high intensity statin along with anti-ischemic medications Performing an echo to assess the current status of the ejection fraction and for wall motion abnormalities Follow-up with the patient Past Medical History Past Medical History: COPD, Thyroid Disorder History of Any Multi-Drug Resistant Organisms: None Reported Past Surgical History: Orthopedic Surgery Additional Past Surgical History / Comment(s): surgery fx rt wrist , surgery fx rt arm, rt shoulder arthroscopy Past Anesthesia/Blood Transfusion Reactions: No Reported Reaction Smoking Status: Former smoker - Past Family History Father Family Medical History: Cancer Mother Family Medical History: Cancer Medications and Allergies Home Medications Medication Instructions Recorded Confirmed Type Fluticasone Propion/Salmeterol 1 inhalation PO BID 11/26/14 06/09/22 History [Advair 250-50 Diskus] Ibuprofen [Motrin] 600 mg PO Q8HR PRN #20 tab 12/17/21 06/09/22 Rx Aspirin [Adult Low Dose Aspirin EC] 81 mg PO DAILY 06/08/22 06/09/22 History Atorvastatin [Lipitor] 10 mg PO DAILY 06/08/22 06/09/22 History Donepezil [Aricept] 10 mg PO HS 06/08/22 06/09/22 History Fluticasone Nasal [place] [Flonase 1 spray EA NOSTRIL BID 06/08/22 06/09/22 History Nasal [place]] Levothyroxine Sodium [Synthroid] 88 mcg PO DAILY 06/08/22 06/09/22 History Montelukast Sodium [Singulair] 10 mg PO DAILY 06/08/22 06/09/22 History PARoxetine [Paxil] 20 mg PO DAILY 06/08/22 06/09/22 History amLODIPine [Norvasc] 5 mg PO DAILY 06/08/22 06/09/22 History lisinopriL [Zestril] 10 mg PO DAILY 06/08/22 06/09/22 History HYDROcodone/APAP 7.5-325MG [[place] 1 each PO Q6HR PRN #21 tab 06/09/22 Rx 7.5] diphenhydrAMINE [Benadryl] 25 mg PO BID PRN #30 capsule 06/09/22 Rx Allergies Allergy/AdvReac Type Severity Reaction Status Date / Time hydrocodone [From [place]] Allergy Itching Verified 06/09/22 09:17 Physical Exam Vitals: Vital Signs Temp Pulse Resp BP Pulse Ox 08/02/23 05:20 97.0 F L 92 21 156/94 98 Intake and Output 08/01/23 08/01/23 08/02/23 14:59 22:59 06:59 Intake Total 150 Balance 150 Intake: IV 150 Other: Weight 77.111 kg Results Current Medications Generic Name Dose Route Start Last Admin Trade Name Freq PRN Reason Stop Dose Admin Al Hydroxide/Mg Hydroxide 30 ml 08/02/23 06:23 Mag Hydrox/Al Hydrox/Simeth 30 Ml Cup PO Q4HR PRN Heartburn Aspirin 81 mg 08/02/23 09:00 Aspirin 81 Mg PO DAILY [facility] Atorvastatin Calcium 80 mg 08/02/23 21:00 Atorvastatin 80 Mg Tab PO HS LAURA Atropine Sulfate 0.5 mg 08/02/23 06:23 Atropine Sulfate 0.1 Mg/Ml 10ml Syringe IV ONCE PRN Symptomatic Bradycardia Sodium Chloride 1,000 mls @ 20 mls/hr 08/02/23 05:45 08/02/23 05:35 Saline 0.9% IV 20 mls/hr .Q24H LAURA Administration Sodium Chloride 1,000 ml/ IV 1,000 mls @ 75 mls/hr 08/02/23 06:30 Solution IV 08/02/23 11:31 .[id number] [facility] Lisinopril 2.5 mg 08/02/23 09:00 Lisinopril 2.5 Mg Tab PO DAILY [facility] Metoprolol Tartrate 12.5 mg 08/02/23 09:00 Metoprolol Tartrate 12.5 Mg Tab PO BID [facility] Miscellaneous Information 1 each 08/02/23 06:23 Rx Info: Iv Contrast Was Given 1 Each Misc MISCELLANE 08/04/23 06:23 DAILY PRN Per Protocol Naloxone HCl 0.2 mg 08/02/23 05:31 Naloxone 0.4 Mg/Ml 1 Ml Vial IV Q2M PRN Opioid Reversal Nitroglycerin 0.4 mg 08/02/23 06:23 Nitroglycerin Sl Tabs 0.4 Mg Tab SUBLINGUAL Q5M PRN Chest Pain Prasugrel 10 mg 08/03/23 09:00 Prasugrel 10 Mg Tab PO DAILY [facility] Protocol Zolpidem Tartrate 5 mg 08/02/23 06:23 Zolpidem 5 Mg Tab PO HS PRN Insomnia Intake and Output 08/01/23 08/01/23 08/02/23 14:59 22:59 06:59 Intake Total 150 Balance 150 Intake: IV 150 Other: Weight 77.111 kg Patient Weight 08/02/23 06:59 Weight 77.111 kg
[2023-08-02 06:49] LABS: Glucose,Whole Blood 167 mg/dL (70-110)
[2023-08-02] MEDS: ASPIRIN 81 MG PO SCH (10:08)
[2023-08-02] MEDS: METOPROLOL TARTRATE 12.5 MG TAB PO SCH ×2 (10:08→20:12)
--- NOTE | 2023-08-02 11:03 | CA ---
Transthoracic Echo Report Name: Yuval Greene Age: 62 Gender: M : 1960 Exam Date: 08/02/2023 09:42 Exam Location: [place] [facility] Ht (in): 63 Wt (lb): 170 Ordering Physician: Rayo Gomez MD ([id number]) Attending/Referring Phys: [employer] Campblel Krishna Procedure CPT: Indications: stemi Cardiac Hx: Technical Quality: Technically difficult study Contrast 1: Total Dose (mL): Contrast 2: Total Dose (mL): MEASUREMENTS (Male / Female) Normal Values 2D ECHO LV Diastolic Diameter PLAX 3.9 cm 4.2 - 5.9 / 3.9 - 5.3 cm LV Systolic Diameter PLAX 2.4 cm IVS Diastolic Thickness 1.0 cm 0.6 - 1.0 / 0.6 - 0.9 cm LVPW Diastolic Thickness 1.2 cm 0.6 - 1.0 / 0.6 - 0.9 cm LV Relative Wall Thickness 0.6 RV Internal Dim ED PLAX 3.0 cm LVOT Diameter 2.2 cm Aortic Root Diameter 3.1 cm LA Systolic Diameter LX 3.1 cm 3.0 - 4.0 / 2.7 - 3.8 cm LV Diastolic Volume MOD BP 55.2 cm??? 67 - 155 / 56 - 104 cm??? LV Systolic Volume MOD BP 22.7 cm??? 22 - 58 / 19 - 49 cm??? LV Ejection Fraction MOD BP 58.8 % >= 55 % LV Cardiac Index MOD BP 1210.8 cm???/min???m??? LV Diastolic Volume MOD 4C 58.0 cm??? LV Systolic Volume MOD 4C 26.9 cm??? LV Ejection Fraction MOD 4C 53.6 % LV Cardiac Index MOD 4C 1158.7 cm???/min???m??? LV Diastolic Length 4C 8.3 cm LV Systolic Length 4C 6.8 cm LV Diastolic Volume MOD 2C 49.5 cm??? LV Systolic Volume MOD 2C 18.4 cm??? LV Ejection Fraction MOD 2C 62.8 % LV Cardiac Index MOD 2C 1158.9 cm???/min???m??? LV Diastolic Length 2C 7.6 cm LV Systolic Length 2C 6.5 cm LA Volume 43.9 cm??? 18 - 58 / 22 - 52 cm??? LA Volume Index 23.4 cm???/m??? 16 - 28 cm???/m??? DOPPLER AV Peak Velocity 171.4 cm/s AV Peak Gradient 11.7 mmHg LVOT Peak Velocity 126.4 cm/s LVOT Peak Gradient 6.4 mmHg LVOT Velocity Time Integral 24.9 cm LVOT Stroke Volume 91.9 cm??? LVOT Stroke Volume Index 50.9 ml/m??? LVOT Cardiac Index 3427.0 cm???/min???m??? AV Area Cont Eq pk 2.7 cm??? MV Peak Velocity 117.0 cm/s MV Peak Gradient 5.5 mmHg MV Mean Velocity 65.5 cm/s MV Mean Gradient 2.0 mmHg MV Velocity Time Integral 46.0 cm MR Peak Velocity 167.6 cm/s MR Peak Gradient 11.2 mmHg TR Peak Velocity 154.8 cm/s TR Peak Gradient 9.6 mmHg Right Ventricular Systolic Press 14.7 mmHg FINDINGS Left Ventricle Normal LV size and wall thickness. Left ventricular ejection fraction is estimated at 50-55 %. Inferior and inferoseptal and inferolateral wall hypokinesia Right Ventricle Normal right ventricular size. RVSP= 15mmHg. Right Atrium Normal right atrial size. Left Atrium Normal left atrial size. Mitral Valve Structurally normal mitral valve. Aortic Valve Aortic valve not well visualized. No aortic valve stenosis or regurgitation. Tricuspid Valve Structurally normal tricuspid valve. Trace TR. Pulmonic Valve Pulmonic valve not well visualized. No pulmonic regurgitation. Pericardium No pericardial effusion Aorta Normal size aortic root. CONCLUSIONS Technically difficult study. Left ventricular ejection fraction is estimated at 50-55 %. Normal LV size and wall thickness. Inferior and inferoseptal and inferolateral wall hypokinesia. No significant valvular dysfunction No pericardial effusion Previewed by: Dr Yonny Sandra (Electronically Signed) Final Date: 02 August 2023 11:02
[2023-08-02 11:45] VITALS: BMI 30.1
[2023-08-02] MEDS ORDERED: ACETAMINOPHEN TAB 325 MG TAB PO PRN (14:54)
[2023-08-02] MEDS ORDERED: ALBUTEROL NEBULIZED 2.5 MG/3 ML INHALATION PRN (15:59)
[2023-08-02] MEDS ORDERED: NON FORMULARY DRUG (Albuterol Inhaler 90 MCG Puff) INHALATION PRN (15:59)
[2023-08-02] MEDS ORDERED: IBUPROFEN 800 MG TAB PO PRN (15:59)
[2023-08-02] MEDS: FLUTICASONE 50MCG/SPRAY NASAL 16GM EA NOSTRIL SCH (20:00)
[2023-08-02] MEDS: DONEPEZIL 10 MG TAB PO SCH (20:12)
[2023-08-02] MEDS: ATORVASTATIN 80 MG TAB PO SCH (20:12)
[2023-08-02] MEDS: SYMBICORT 80-4.5 MCG INHALER INHALATION SCH (20:22)
[2023-08-03] MEDS: LEVOTHYROXINE 88 MCG TAB PO SCH (06:46)
[2023-08-03] MEDS: SYMBICORT 80-4.5 MCG INHALER INHALATION SCH ×2 (07:50→20:20)
--- NOTE | 2023-08-03 08:47 | PN ---
PROGRESS NOTE DATE OF SERVICE: 08/02/2023 CHIEF COMPLAINT: Chest pain. HISTORY OF PRESENT ILLNESS: First known admission for this 62-year-old male. Four days ago while he was at work, he experienced some pain in the chest and back. He did not think much of it. It went away. He went home and then on the night of admission, he developed severe pressure and anterior tight chest pain, radiating to the back with slight shortness of breath and diaphoresis as well as nausea. He came in where he was found to have an acute STEMI. Taken to the laboratory coordinator where the right coronary artery was opened and stented. REVIEW OF SYSTEMS: He has had no other problems. He has had no shortness of breath or cough. It was reported that he has been seen in the office by 1 of the caregivers for his various nodules in his lungs. Past medical history, family history, personal and social histories are otherwise unremarkable. MEDICATIONS: He is taking Paxil and medications for hypertension. Does not smoke. PHYSICAL EXAMINATION: VITAL SIGNS: Blood pressure 147/115, pulse is 83, respirations are normal. GENERAL: He appeared to be in no acute distress. He is slightly overweight. SKIN: Color is normal, skin was dry. HEENT: Head, ears, eyes, nose, mouth and throat are normal. CHEST: Clear. CARDIAC: Normal sinus rhythm. ABDOMEN: Soft, nontender. EXTREMITIES: Normal. NEUROLOGIC: Intact. DIAGNOSES: Admitted to the hospital with diagnoses, 1. Acute NSTEMI. 2. Hypertension. 3. History of depression. PLAN: 1. Follow with Cardiology while he is in ICU. 2. Lipid profile. MMODL / IJN: [id number] /
[2023-08-03] MEDS ORDERED: NON FORMULARY DRUG (Aspirin [Adult Low Dose Aspirin Ec] 81 MG Tablet) PO SCH (09:00)
[2023-08-03] MEDS ORDERED: lisinopriL 10 MG TAB PO SCH (09:00)
[2023-08-03] MEDS ORDERED: ATORVASTATIN 10 MG TAB PO SCH (09:00)
[2023-08-03] MEDS: ASPIRIN 81 MG PO SCH (09:07)
[2023-08-03] MEDS: PARoxetine 20 MG TAB PO SCH (09:07)
[2023-08-03] MEDS: PRASUGREL 10 MG TAB PO SCH (09:08)
[2023-08-03] MEDS: MONTELUKAST 10 MG TAB PO SCH (09:08)
[2023-08-03] MEDS: METOPROLOL TARTRATE 12.5 MG TAB PO SCH ×2 (09:08→20:33)
[2023-08-03 09:31] LABS: African American GFR (CKD) >90 (>60 ml/min/1.73 sqM); Non-African American GFR(CKD) >90 (>60 ml/min/1.73 sqM)
--- NOTE | 2023-08-03 09:57 | P.PN ---
Subjective The patient is a pleasant 62-year-old gentleman with a past medical history significant for hypertension and dyslipidemia presented to the emergency department initially at [facility] with a chest discomfort. The patient was in his usual state of health until last night when he started experiencing discomfort across the chest as a pressure on the chest. No radiation to the arms but the pain was radiating to his back.His symptoms of any dizziness or lightheadedness or presyncope or syncope. He was experiencing shortness of breath and he did have sweating associated with a chest discomfort. He decided to come to the emergency department where the EKG over there showed ST segment elevation inferiorly with reciprocal changes in the anterior leads. Subsequently the patient was transferred to emergency department here [facility] where he then underwent an emergent heart catheterization and was found to have critical disease involving the mid RCA which was stented was normal left coronary system and mildly elevated left-sided filling pressure. The procedure was performed from right radial approach and the patient tolerated the procedure very well. By the end he was slightly hypotensive requiring small doses of dopamine. The patient will be admitted to the intensive care unit. He will be on dual antiplatelet therapy along with high intensity statin along with anti- ischemic medications. An echocardiogram to be performed. The patient did not have any history of CAD or heart failure or cardiac arrhythmia never seen any sampler first in the past. He does have hypertension and dyslipidemia and he us ed to smoke but he quit smoking long time ago. 08/03 Patient seen and examined. Patient underwent heart catheterization with stenting of the RCA yesterday. He denies any further chest pain however is still having his back pain which we discussed is likely non-cardiac. Echo shows EF 50-55% with inferior hypokinesis. Mild asymptomatic bradycardia with heart rates in the 50s at night. PHYSICAL EXAMINATION Vital signs reviewed. CONSTITUTIONAL: No apparent distress. HEENT: Head is normocephalic. Pupils are equal, round. Sclerae anicteric. Mucous membranes of the mouth are moist. No JVD. No carotid bruit. CHEST EXAMINATION: Lungs are clear to auscultation. No chest wall tenderness is noted on palpation or with deep breathing. HEART EXAMINATION: Regular rate and rhythm. S1, S2 heard. No murmurs, gallops or rub. ABDOMEN: Soft, nontender. Positive bowel sounds. EXTREMITIES: 2+ peripheral pulses, no lower extremity edema and no calf tenderness. NEUROLOGIC EXAMINATION: Patient is awake, alert and oriented x3. Assessment Acute inferior ST elevation myocardial infarction Status post PCI of the RCA Hypertension Dyslipidemia History of smoking Asymptomatic bradycardia Plan Continue the current medical regimen Continue dual antiplatelet therapy along with high intensity statin along with anti-ischemic medications Continue beta katya however hold if he is actually symptomatic from his bradycardia. Okay for transfer from ICU. Likely discharge tomorrow morning if remains stable. Objective - Vital Signs Vital signs: Vital Signs Temp 98.2 F 08/03/23 08:00 Pulse 57 L 08/03/23 09:00 Resp 14 08/03/23 09:00 BP 85/49 08/03/23 09:00 Pulse Ox 95 08/03/23 09:00 FiO2 21 08/02/23 20:24 Intake & Output 08/02/23 08/03/23 08/03/23 18:59 06:59 18:59 Intake Total 2500 200 Output Total 1200 2425 500 Balance 1300 -2425 -300 Weight 77.111 kg 76.3 kg Intake: IV 750 Sodium Chloride 0.9% 1, 750 000 ml In Empty Bag 1 bag @ 75 mls/hr IV .[id number] [facility] Rx#:[id number] Oral 1750 200 Output: Urine 1200 2425 500 Other: Voiding Method Urinal Toilet # Bowel Movements 1 - Labs CBC & Chem 7: 08/03/23 08:16
[2023-08-03] MEDS: ATORVASTATIN 80 MG TAB PO SCH (20:33)
[2023-08-03] MEDS: FLUTICASONE 50MCG/SPRAY NASAL 16GM EA NOSTRIL SCH (20:53)
[2023-08-03] MEDS: DONEPEZIL 10 MG TAB PO SCH (20:53)
--- NOTE | 2023-08-04 05:29 | PN ---
PROGRESS NOTE DATE OF SERVICE: 08/03/2023 CHIEF COMPLAINT: Acute STEMI. HISTORY OF PRESENT ILLNESS: This gentleman is doing well. He has had no shortness of breath, chest pain, etc. PHYSICAL EXAMINATION: VITAL SIGNS: Normal. Color is good. CHEST: Clear. CARDIAC: Normal. ABDOMEN: Soft, nontender. EXTREMITIES: Normal. IMPRESSION: Acute STEMI. PLAN: Increase activity and probably home soon. MMODL / IJN: [id number] /
[2023-08-04] MEDS: LEVOTHYROXINE 88 MCG TAB PO SCH (06:13)
[2023-08-04] MEDS: ASPIRIN 81 MG PO SCH (08:26)
[2023-08-04] MEDS: METOPROLOL TARTRATE 12.5 MG TAB PO SCH (08:26)
[2023-08-04] MEDS: MONTELUKAST 10 MG TAB PO SCH (08:26)
[2023-08-04] MEDS: PARoxetine 20 MG TAB PO SCH (08:26)
[2023-08-04] MEDS: PRASUGREL 10 MG TAB PO SCH (08:27)
[2023-08-04] MEDS: SYMBICORT 80-4.5 MCG INHALER INHALATION SCH (08:34)
[2023-08-04 12:36] VITALS: TEMP 98.1
--- NOTE | 2023-08-04 15:58 | P.PN ---
Subjective The patient is a pleasant 62-year-old gentleman with a past medical history significant for hypertension and dyslipidemia presented to the emergency department initially at [facility] with a chest discomfort. The patient was in his usual state of health until last night when he started experiencing discomfort across the chest as a pressure on the chest. No radiation to the arms but the pain was radiating to his back.His symptoms of any dizziness or lightheadedness or presyncope or syncope. He was experiencing shortness of breath and he did have sweating associated with a chest discomfort. He decided to come to the emergency department where the EKG over there showed ST segment elevation inferiorly with reciprocal changes in the anterior leads. Subsequently the patient was transferred to emergency department here [facility] where he then underwent an emergent heart catheterization and was found to have critical disease involving the mid RCA which was stented was normal left coronary system and mildly elevated left-sided filling pressure. The procedure was performed from right radial approach and the patient tolerated the procedure very well. By the end he was slightly hypotensive requiring small doses of dopamine. The patient will be admitted to the intensive care unit. He will be on dual antiplatelet therapy along with high intensity statin along with anti- ischemic medications. An echocardiogram to be performed. The patient did not have any history of CAD or heart failure or cardiac arrhythmia never seen any appliance mechanic in the past. He does have hypertension and dyslipidemia and he u sed to smoke but he quit smoking long time ago. 08/03 Patient seen and examined. Patient underwent heart catheterization with stenting of the RCA yesterday. He denies any further chest pain however is still having his back pain which we discussed is likely non-cardiac. Echo shows EF 50-55% with inferior hypokinesis. Mild asymptomatic bradycardia with heart rates in the 50s at night. 08/04 Seen and examined. Denies any chest pain or pressure. No repeat blood work is been performed. The has had good urine output however. Blood pressures remain stable with mild asymptomatic bradycardia. Anxious to go home. He is interested in pursuing cardiac rehab. PHYSICAL EXAMINATION Vital signs reviewed. CONSTITUTIONAL: No apparent distress. HEENT: Head is normocephalic. Pupils are equal, round. Sclerae anicteric. Mucous membranes of the mouth are moist. No JVD. No carotid bruit. CHEST EXAMINATION: Lungs are clear to auscultation. No chest wall tenderness is noted on palpation or with deep breathing. HEART EXAMINATION: Regular rate and rhythm. S1, S2 heard. No murmurs, gallops or rub. ABDOMEN: Soft, nontender. Positive bowel sounds. EXTREMITIES: 2+ peripheral pulses, no lower extremity edema and no calf tenderness. NEUROLOGIC EXAMINATION: Patient is awake, alert and oriented x3. Assessment Acute inferior ST elevation myocardial infarction Status post PCI of the RCA Hypertension Dyslipidemia History of smoking Asymptomatic bradycardia Plan Patient appears stable for discharge home. Follow-up in office in 1 week. Continue current regimen. Objective - Vital Signs Vital signs: Vital Signs Temp 98.1 F 08/04/23 12:00 Pulse 65 08/04/23 12:00 Resp 20 08/04/23 12:00 BP 114/79 08/04/23 12:00 Pulse Ox 98 08/04/23 12:00 FiO2 21 08/02/23 20:24 Intake & Output 08/03/23 08/04/23 08/04/23 18:59 06:59 18:59 Intake Total 350 50 Output Total 894 873 6448 Balance -350 -750 -1000 Weight 76.9 kg Intake: Oral 350 50 Output: Urine 560 121 9915 Other: Voiding Method Urinal Urinal Urinal - Labs CBC & Chem 7: 08/03/23 08:16
[2023-08-04 16:24] VITALS: BP 125/74; PULSE 64; RESP 17
--- NOTE | 2023-08-09 01:04 | DS ---
DISCHARGE SUMMARY CHIEF COMPLAINT: Chest pain. HISTORY OF PRESENT ILLNESS AND PHYSICAL EXAMINATION: Details of this man's history and physical can be found in the initial workup. LABORATORY STUDIES: While he was in the hospital, he had laboratory studies, details of which can be found in the laboratory section of his chart. COURSE IN THE HOSPITAL: After admission, he was placed on bedrest, started on intravenous fluids and taken to the laboratory geneticist, where he underwent cardiac cath and stenting of the RCA. Postoperatively, he did well. He continued to improve and was able to be safely discharged on . He will be followed up in several days in my office and Cardiology office. FINAL DIAGNOSIS: Acute STEMI. OPERATIONS: Cardiac cath and stenting. CONSULTATIONS: Cardiology. He is improved. MMODL / IJN: [id number] /
== END 2023-08-04 18:30 | disposition home or self-care (01) | DRG 322 ==
LOC: EC 05:19 → 2SICU 05:31
PROVIDERS: ADMIT Family Medicine; ATTEND Family Medicine
PROC: 4A023N7 Measurement of Cardiac Sampling and Pressure, Left Heart, Percutaneous Approach (ICD-10-PCS; principal; 2023-08-02 05:35)
PROC: 027034Z Dilation of Coronary Artery, One Artery with Drug-eluting Intraluminal Device, Percutaneous Approach (ICD-10-PCS; principal; 2023-08-02 05:35)
PROC: B240ZZ3 Ultrasonography of Single Coronary Artery, Intravascular (ICD-10-PCS; principal; 2023-08-02 05:35)
PROC: B2111ZZ Fluoroscopy of Multiple Coronary Arteries using Low Osmolar Contrast (ICD-10-PCS; principal; 2023-08-02 05:35)
DX: I21.19 ST elevation (STEMI) myocardial infarction involving other coronary artery of inferior wall (principal); E78.5 Hyperlipidemia, unspecified; I95.9 Hypotension, unspecified; I10 Essential (primary) hypertension; J44.9 Chronic obstructive pulmonary disease, unspecified; Z79.82 Long term (current) use of aspirin; Z79.890 Hormone replacement therapy; Z79.899 Other long term (current) drug therapy; Z87.891 Personal history of nicotine dependence; Z71.3 Dietary counseling and surveillance; Z88.6 Allergy status to analgesic agent; Z88.5 Allergy status to narcotic agent
CPT/HCPCS: 82565; 92978; 93306; 93458; 94640; 96374; 99291